=== PATIENT | male | born 1940 | race Caucasian/White ===

== ENCOUNTER 2022-10-31 07:40 | Emergency (ER) | payer MEDICARE ==
--- NOTE | 2022-10-31 07:55 | ED ---
General Adult HPI - General Source: patient, RN notes reviewed Mode of arrival: wheelchair Limitations: no limitations <Yoel Diaz - Last Filed: 10/31/22 07:54> <Mary Lou Perdomo - Last Filed: 11/03/22 22:50> - General Chief complaint: Extremity Injury, Lower Stated complaint: swelling in feet Time Seen by Provider: 10/31/22 07:54 - History of Present Illness Initial comments: This an 82-year-old male presents emergency Department with chief complaint of leg swelling. This is an outpatient last couple years. He states that he is currently homeless she is from [facility] he [place] [facility] vehicle stopped working. Patient states that his legs are more swollen usual and he felt that he needs to be evaluated because he was evaluated and [facility] 2 weeks ago he was told that symptoms worsened to be evaluated. He denies any chest pain or shortness of breath denies any other specific complaints states she was on diuretics but states never helped so they were not continued. (Yoel Diaz) 82 year old male presents with leg swelling. States he has long standing issues with leg swelling but recently drove to [place] from [place] and has had worsening swelling since the drive. He denies any calf pain. No chest pain or shortness of breath. He use to take a water pill for the swelling however he felt like they didnt work and the swelling got better on its own so he has been off of them for several years. He denies any redness. He has been attempting to elevate them but has been living in his car with his dog. States that he plans to rent an apartment when he gets his social security next week. (Mary Lou Perdomo) - Related Data Previous Rx's Medication Instructions Recorded hydroCHLOROthiazide 25 mg PO DAILY #30 tab 10/31/22 Allergies Allergy/AdvReac Type Severity Reaction Status Date / Time Penicillins Allergy Unknown Verified 10/31/22 12:05 Childhood Review of Systems ROS Other: All systems not noted in ROS Statement are negative. <Yoel Diaz - Last Filed: 10/31/22 07:54> ROS Other: All systems not noted in ROS Statement are negative. <Mary Lou Perdomo - Last Filed: 11/03/22 22:50> ROS Statement: Those systems with pertinent positive or pertinent negative responses have been documented in the HPI. Past Medical History Past Medical History: No Reported History History of Any Multi-Drug Resistant Organisms: None Reported Past Surgical History: No Surgical Hx Reported Past Psychological History: No Psychological Hx Reported Smoking Status: Never smoker Past Alcohol Use History: None Reported Past Drug Use History: None Reported <Yoel Diaz - Last Filed: 10/31/22 07:54> General Exam Limitations: no limitations <Yoel Diaz - Last Filed: 10/31/22 07:54> General appearance: alert, in no apparent distress Head exam: Present: atraumatic, normocephalic, normal inspection Eye exam: Present: normal appearance, PERRL, EOMI. Absent: scleral icterus, conjunctival injection, periorbital swelling ENT exam: Present: normal exam, mucous membranes moist Neck exam: Present: normal inspection. Absent: tenderness, meningismus, lymphadenopathy Respiratory exam: Present: normal lung sounds bilaterally. Absent: respiratory distress, wheezes, rales, rhonchi, stridor Cardiovascular Exam: Present: regular rate, normal rhythm, normal heart sounds. Absent: systolic murmur, diastolic murmur, rubs, gallop, clicks GI/Abdominal exam: Present: soft, normal bowel sounds. Absent: distended, tenderness, guarding, rebound, rigid Extremities exam: Present: full ROM, normal capillary refill, pedal edema (2+). Absent: tenderness, joint swelling, calf tenderness Back exam: Present: normal inspection Neurological exam: Present: alert, oriented X3, CN II-XII intact Psychiatric exam: Present: normal affect, normal mood Skin exam: Present: warm, dry, intact, normal color. Absent: rash <Mary Lou Perdomo - Last Filed: 11/03/22 22:50> - General Exam Comments Initial Comments: Visual Physical Exam Vital signs reviewed General: Well-appearing, nontoxic, no acute distress. Head: Normocephalic, atraumatic Eyes: PERRLA, EOMI ENT: Airway patent Chest: Nonlabored breathing Skin: No visual rash, normal skin tone Neuro: Alert and oriented 3 Musculoskeletal: No gross abnormalities (Yoel Diaz) Course Vital Signs 10/31/22 10/31/22 07:51 12:13 Temperature 98 F 97.4 F L Pulse Rate 69 68 Respiratory 16 18 Rate Blood Pressure 193/84 183/79 O2 Sat by Pulse 99 100 Oximetry Medical Decision Making <Yoel Diaz - Last Filed: 10/31/22 07:54> - Lab Data Result diagrams: 10/31/22 09:54 10/31/22 09:54 <Mary Lou Perdomo - Last Filed: 11/03/22 22:50> - Medical Decision Making I performed a quick note portion of this chart signed Yoel Diaz PA-C (Yoel Diaz) Was pt. sent in by a medical professional or institution (MERLYN Mckenna, COLLAR FOLDER OPERATOR, urgent care, hospital, or prison...) When possible be specific @ -No Did you speak to anyone other than the patient for history (EMS, parent, family, police, friend...)? What history was obtained from this source @ -No Did you review nursing and triage notes (agree or disagree)? Why? @ -I reviewed and agree with nursing and triage notes Were old charts reviewed (outside hosp., previous admission, EMS record, old EKG , old radiological studies, urgent care reports/EKG's, prison records)? Report findings @ -No old charts were reviewed Differential Diagnosis (chest pain, altered mental status, abdominal pain women, abdominal pain men, vaginal bleeding, weakness, fever, dyspnea, syncope, headache, dizziness, GI bleed, back pain, seizure, CVA, palpatations, mental health, musculoskeletal)? @ -peripheral edema, dvt, cellulitis EKG interpreted by me (3pts min.). @ -Yes and demonstrates sinus rhythm rate 64. FL interval 186. QRS 116. QTC of 443. No acute ST segment elevations or depressions X-rays interpreted by me (1pt min.). @ -None done CT interpreted by me (1pt min.). @ -None done U/S interpreted by me (1pt. min.). @ -yes and demonstrates no dvt What testing was considered but not performed or refused? (CT, X-rays, U/S, labs)? Why? @ -None What meds were considered but not given or refused? Why? @ -None Did you discuss the management of the patient with other professionals (professionals i.e. , MERLYN, COLLAR FOLDER OPERATOR, lab, RT, psych nurse, manager social services, division sales manager, teacher, campus safety officer, protective services case worker)? Give summary @ -Spoke with Danielle the protective services case worker who attempts to help the patients social situation Was smoking cessation discussed for >3mins.? @ -No Was critical care preformed (if so, how long)? @ -No Were there social determinants of health that impacted care today? How? (Homelessness, low income, unemployed, alcoholism, drug addiction, transportation, low edu. Level, literacy, decrease access to med. care, fpc, rehab)? @ -Patient recently moved from [place] to [place] and is living in his car Was there de-escalation of care discussed even if they declined (Discuss DNR or withdrawal of care, Hospice)? DNR status @ -No What co-morbidities impacted this encounter? (DM, HTN, Smoking, COPD, CAD, Can cer, CVA, ARF, Chemo, Hep., AIDS, mental health diagnosis, sleep apnea, morbid obesity)? @ -None Was patient admitted / discharged? Hospital course, mention meds given and route, prescriptions, significant lab abnormalities, going to OR and other pertinent info. @ -Patient placed in room 32. Labs conducted. US performed of lower extremities which do not demonstrate dvt. chemical manager speaks with the patient. He will be started on a diuretic. Instructed to follow up with PCP. Return for any new or worsening symptoms. Undiagnosed new problem with uncertain prognosis? @ -No Drug Therapy requiring intensive monitoring for toxicity (Heparin, Nitro, Insulin, Cardizem)? @ -No Were any procedures done? @ -No Diagnosis/symptom? @ -acute exacerbation of chronic peripheral edema Acute, or Chronic, or Acute on Chronic? @ -acute on chronic Uncomplicated (without systemic symptoms) or Complicated (systemic symptoms)? @ -uncomplicated Side effects of treatment? @ -No Exacerbation, Progression, or Severe Exacerbation? @ -yes Poses a threat to life or bodily function? How? (Chest pain, [place], [place], pneumonia, PE, COPD, DKA, ARF, appy, cholecystitis, CVA, Diverticulitis, Homicidal, Suicidal, threat to staff... and all critical care pts) @ -No (Mary Lou Perdomo) - Lab Data Lab Results 10/31/22 10/31/22 10/31/22 Range/Units 09:54 09:54 09:54 WBC 5.7 (3.8-10.6) k/uL RBC 4.26 L (4.30-5.90) m/uL Hgb 13.8 (13.0-17.5) gm/dL Hct 41.5 (39.0-53.0) % MCV 97.5 (80.0-100.0) fL MCH 32.3 (25.0-35.0) pg MCHC 33.2 (31.0-37.0) g/dL RDW 14.0 (11.5-15.5) % Plt Count 203 (150-450) k/uL MPV 7.7 Neutrophils % 75 % Lymphocytes % 15 % Monocytes % 5 % Eosinophils % 1 % Basophils % 0 % Neutrophils # 4.3 (1.3-7.7) k/uL Lymphocytes # 0.9 L (1.0-4.8) k/uL Monocytes # 0.3 (0-1.0) k/uL Eosinophils # 0.1 (0-0.7) k/uL Basophils # 0.0 (0-0.2) k/uL PT 10.4 (9.0-12.0) sec INR 1.0 (<1.2) APTT 24.9 (22.0-30.0) sec Sodium 143 (137-145) mmol/L Potassium 3.9 (3.5-5.1) mmol/L Chloride 112 H (98-107) mmol/L Carbon Dioxide 22 (22-30) mmol/L Anion Gap 9 mmol/L BUN 22 H (9-20) mg/dL Creatinine 1.29 H (0.66-1.25) mg/dL Est GFR (CKD-EPI)AfAm 59 (>60 ml/min/1.73 sqM) Est GFR (CKD-EPI)NonAf 51 (>60 ml/min/1.73 sqM) Glucose 123 H (74-99) mg/dL Calcium 9.0 (8.4-10.2) mg/dL Magnesium 1.9 (1.6-2.3) mg/dL Total Bilirubin 0.7 (0.2-1.3) mg/dL AST 24 (17-59) U/L ALT 16 (4-49) U/L Alkaline Phosphatase 52 (38-126) U/L NT-Pro-B Natriuret Pep 1620 pg/mL Total Protein 6.8 (6.3-8.2) g/dL Albumin 4.1 (3.5-5.0) g/dL Disposition <Yoel Diaz - Last Filed: 10/31/22 07:54> Is patient prescribed a controlled substance at d/c from ED?: No Time of Disposition: 13:02 <Mary Lou Perdomo - Last Filed: 11/03/22 22:50> Clinical Impression: Peripheral edema Disposition: HOME SELF-CARE Condition: Stable Instructions (If sedation given, give patient instructions): Leg Edema (ED) Prescriptions: hydroCHLOROthiazide 25 mg PO DAILY #30 tab Referrals: Nonstaff,Physician [Primary Care Provider] - 1-2 days Forms: [facility], [facility], Who Do I Call?, Community Resources, Personal Chocolate Production Machine Operator
[2022-10-31 10:12] LABS: Basophils % (A) 0 %; Eosinophils # (A) 0.1 k/uL (0-0.7); Eosinophils % (A) 1 %; HCT 41.5 % (39.0-53.0); HGB 13.8 gm/dL (13.0-17.5); Lymphocytes # (A) 0.9 k/uL (1.0-4.8); Lymphocytes % (A) 15 %; MCH 32.3 pg (25.0-35.0); MCHC 33.2 g/dL (31.0-37.0); MCV 97.5 fL (80.0-100.0); Mean Platelet Volume 7.7; Monocytes # (A) 0.3 k/uL (0-1.0); Monocytes % (A) 5 %; Neutrophils # (A) 4.3 k/uL (1.3-7.7); Neutrophils % (A) 75 %; Platelet Count 203 k/uL (150-450); RBC 4.26 m/uL (4.30-5.90); WBC 5.7 k/uL (3.8-10.6)
[2022-10-31 10:20] LABS: ALT 16 U/L (4-49); AST 24 U/L (17-59); African American GFR (CKD) 59 (>60 ml/min/1.73 sqM); Albumin 4.1 g/dL (3.5-5.0); Alkaline Phosphatase 52 U/L (38-126); Anion Gap 9 mmol/L; Blood Urea Nitrogen 22 mg/dL (9-20); Carbon Dioxide 22 mmol/L (22-30); Chloride 112 mmol/L (98-107); Glucose 123 mg/dL (74-99); Magnesium 1.9 mg/dL (1.6-2.3); Non-African American GFR(CKD) 51 (>60 ml/min/1.73 sqM); Partial Thromboplastin Time 24.9 sec (22.0-30.0); Potassium 3.9 mmol/L (3.5-5.1); Prothrombin Time 10.4 sec (9.0-12.0); Sodium 143 mmol/L (137-145); Total Bilirubin 0.7 mg/dL (0.2-1.3); Total Protein 6.8 g/dL (6.3-8.2)
[2022-10-31 10:28] LABS: NT-Pro-B-Type Natriuretic Pept 1620 pg/mL
--- NOTE | 2022-10-31 11:57 | US ---
EXAMINATION TYPE: US venous doppler duplex LE DATE OF EXAM: 10/31/2022 10:58 AM COMPARISON: NONE CLINICAL INDICATION: Male, 82 years old with history of swelling, traveling; bilateral swelling inter mittent x several years, recent 1 week car trip SIDE PERFORMED: Bilateral TECHNIQUE: The lower extremity deep venous system is examined utilizing real time linear array sonog jovi with graded compression, doppler sonography and color-flow sonography. VESSELS IMAGED: Common Femoral Vein Deep Femoral Vein Greater Saphenous Vein * Femoral Vein Popliteal Vein Small Saphenous Vein * Proximal Calf Veins (* superficial vessels) Right Leg: Negative for DVT Left Leg: Negative for DVT IMPRESSION: No evidence of DVT at this time.
[2022-10-31 15:57] VITALS: BP 183/79; PULSE 68; RESP 18; TEMP 97.4
== END 2022-10-31 14:06 | disposition home or self-care (01) ==
LOC: EC 07:40
DX: R60.0 Localized edema (principal); I45.4 Nonspecific intraventricular block; Z88.0 Allergy status to penicillin
CPT/HCPCS: 36415; 80053; 83735; 83880; 85025; 85610; 85730; 93970; 99284

== ENCOUNTER 2022-11-26 17:56 | Emergency (ER) | payer MEDICARE ==
--- NOTE | 2022-11-26 18:35 | ED ---
General Adult HPI - General Source: patient, RN notes reviewed Mode of arrival: ambulatory Limitations: no limitations <Analia Hernandez - Last Filed: 11/26/22 18:33> - General Source: patient, RN notes reviewed Mode of arrival: ambulatory Limitations: no limitations <Yoel Diaz - Last Filed: 11/27/22 00:03> - General Chief complaint: Recheck/Abnormal Lab/Rx Stated complaint: asthma, Time Seen by Provider: 11/26/22 18:30 - History of Present Illness Initial comments: 82-year-old male presents emergency Department with chief complaint of asthma issues. He states that with the rain and the cold weather he has noticed some worsening in his asthma symptoms. Denies fever, chills. (Analia Hernandez) 82-year-old male presents emergency Department chief complaint of asthma issues. Patient states he has issues when he is out in the rain and cold. Patient states he usually takes Benadryl for it. Patient denies use of inhaler denies chest pain no fevers chills patient states he is homeless living out of his car. This is been an ongoing issue. (Yoel Diaz) - Related Data Previous Rx's Medication Instructions Recorded hydroCHLOROthiazide 25 mg PO DAILY #30 tab 10/31/22 Allergies Allergy/AdvReac Type Severity Reaction Status Date / Time Penicillins Allergy Unknown Verified 11/26/22 18:28 Childhood Review of Systems ROS Other: All systems not noted in ROS Statement are negative. <Analia Hernandez - Last Filed: 11/26/22 18:33> ROS Other: All systems not noted in ROS Statement are negative. <Yoel Diaz - Last Filed: 11/27/22 00:03> ROS Statement: Those systems with pertinent positive or pertinent negative responses have been documented in the HPI. Past Medical History Past Medical History: Hypertension Additional Past Medical History / Comment(s): swollen feet, History of Any Multi-Drug Resistant Organisms: None Reported Past Surgical History: No Surgical Hx Reported Past Psychological History: No Psychological Hx Reported Smoking Status: Never smoker Past Alcohol Use History: None Reported Past Drug Use History: None Reported <Analia Hernandez - Last Filed: 11/26/22 18:33> General Exam Limitations: no limitations <Analia Hernandez - Last Filed: 11/26/22 18:33> General appearance: alert, in no apparent distress Head exam: Present: atraumatic, normocephalic, normal inspection Eye exam: Present: normal appearance, PERRL, EOMI. Absent: scleral icterus, conjunctival injection, periorbital swelling ENT exam: Present: normal exam, normal oropharynx, mucous membranes moist Neck exam: Present: normal inspection, full ROM. Absent: tenderness, meningismus, lymphadenopathy Respiratory exam: Present: normal lung sounds bilaterally. Absent: respiratory distress, wheezes, rales, rhonchi, stridor Cardiovascular Exam: Present: regular rate, normal rhythm, normal heart sounds. Absent: systolic murmur, diastolic murmur, rubs, gallop, clicks Neurological exam: Present: alert, oriented X3, CN II-XII intact <Yoel Diaz - Last Filed: 11/27/22 00:03> - General Exam Comments Initial Comments: Visual Physical Exam Vital signs reviewed General: Well-appearing, nontoxic, no acute distress. Head: Normocephalic, atraumatic Eyes: PERRLA, EOMI ENT: Airway patent Chest: Nonlabored breathing Skin: No visual rash, normal skin tone Neuro: Alert and oriented 3 Musculoskeletal: No gross abnormalities (Analia Hernandez) Course Vital Signs 11/26/22 18:21 Temperature 96.8 F L Pulse Rate 77 Respiratory 18 Rate Blood Pressure 177/90 O2 Sat by Pulse 100 Oximetry Medical Decision Making <Analia Hernandez - Last Filed: 11/26/22 18:33> <Yoel Diaz - Last Filed: 11/27/22 00:03> - Medical Decision Making I preformed the quick note portion of this chart. Electronically signed by Analia Hernandez PA-C (Analia Hernandez) Was pt. sent in by a medical professional or institution (MERLYN Mckenna, NETWORK SPECIALIST, urgent care, hospital, or correction...) When possible be specific @ -No Did you speak to anyone other than the patient for history (EMS, parent, family, police, friend...)? What history was obtained from this source @ -No Did you review nursing and triage notes (agree or disagree)? Why? @ -I reviewed and agree with nursing and triage notes Were old charts reviewed (outside hosp., previous admission, EMS record, old EKG, old radiological studies, urgent care reports/EKG's, correction records)? Report findings @ -No old charts were reviewed Differential Diagnosis (chest pain, altered mental status, abdominal pain women, abdominal pain men, vaginal bleeding, weakness, fever, dyspnea, syncope, headache, dizziness, GI bleed, back pain, seizure, CVA, palpatations, mental health, musculoskeletal)? @ -Homelessness, asthma, EKG interpreted by me (3pts min.). @ -None X-rays interpreted by me (1pt min.). @ -None done CT interpreted by me (1pt min.). @ -None done U/S interpreted by me (1pt. min.). @ -None done What testing was considered but not performed or refused? (CT, X-rays, U/S, labs)? Why? @ -None What meds were considered but not given or refused? Why? @ -None Did you discuss the management of the patient with other professionals (professionals i.e. , PA, NETWORK SPECIALIST, lab, RT, psych nurse, hospital social worker, vb net programmer, teacher, conservation enforcement officer, oil field caser)? Give summary @ -No Was smoking cessation discussed for >3mins.? @ -No Was critical care preformed (if so, how long)? @ -No Were there social determinants of health that impacted care today? How? (Homelessness, low income, unemployed, alcoholism, drug addiction, tra nsportation, low edu. Level, literacy, decrease access to med. care, detention, rehab)? @ -Homelessness patient's presenting to due to minimal usp, food Was there de-escalation of care discussed even if they declined (Discuss DNR or withdrawal of care, Hospice)? DNR status @ -No What co-morbidities impacted this encounter? (DM, HTN, Smoking, COPD, CAD, Cancer, CVA, ARF, Chemo, Hep., AIDS, mental health diagnosis, sleep apnea, morbid obesity)? @ -None Was patient admitted / discharged? Hospital course, mention meds given and route, prescriptions, significant lab abnormalities, going to OR and other pertinent info. @ -Discharge patient is improved upon evaluation of the patient. Patient complaints other than that he is hungry, thirsty. Patient is currently homeless. Undiagnosed new problem with uncertain prognosis? @ -No Drug Therapy requiring intensive monitoring for toxicity (Heparin, Nitro, Insulin, Cardizem)? @ -No Were any procedures done? @ -No Diagnosis/symptom? @ -Asthma Acute, or Chronic, or Acute on Chronic? @ -Acute Uncomplicated (without systemic symptoms) or Complicated (systemic symptoms)? @ -Uncomplicated Side effects of treatment? @ -No Exacerbation, Progression, or Severe Exacerbation? @ -No Poses a threat to life or bodily function? How? (Chest pain, [place], [place], pneumonia, PE, COPD, DKA, ARF, appy, cholecystitis, CVA, Diverticulitis, Homicidal, Suicidal, threat to staff... and all critical care pts) @ -No (Yoel Diaz) Disposition <Analia Hernandez - Last Filed: 11/26/22 18:33> Is patient prescribed a controlled substance at d/c from ED?: No Time of Disposition: 00:03 <Yoel Diaz - Last Filed: 11/27/22 00:03> Clinical Impression: Asthma Disposition: HOME SELF-CARE Condition: Stable Additional Instructions: Please return to the Emergency Department if symptoms worsen or any other concerns. Referrals: None,Stated [Primary Care Provider] - 1-2 days
[2022-11-26 18:40] VITALS: BP 177/90; PULSE 77; TEMP 96.8
[2022-11-27 00:17] VITALS: RESP 16
== END 2022-11-27 00:27 | disposition home or self-care (01) ==
LOC: EC 17:56
DX: J45.909 Unspecified asthma, uncomplicated (principal); I10 Essential (primary) hypertension; Z88.0 Allergy status to penicillin
CPT/HCPCS: 99284

== ENCOUNTER 2022-11-27 06:22 | Emergency (ER) | payer MEDICARE ==
--- NOTE | 2022-11-27 07:07 | ED ---
General Adult HPI - General Stated complaint: altered mental state Time Seen by Provider: 11/27/22 06:26 Source: patient, EMS Mode of arrival: EMS - History of Present Illness Initial comments: The patient is an 82-year-old male who has a history of hypertension and homelessness but is otherwise healthy who presents to emergency room with no complaints. Patient states that the police knocked on his window as he was sleeping in his car in a gas station parking lot. He was brought in for evaluation. He states that he is having emotional distress but denies any physical complaints. the patient was seen here last night and went back to his car. He was able to get gas for his car but when he went to start the car it wouldnt start. patient is having a hard time with living and finances. he has applied for an independent living housing but has not heard back about the application. if he does not get in, he will return to [place] to live for the winter. - Related Data Previous Rx's Medication Instructions Recorded hydroCHLOROthiazide 25 mg PO DAILY #30 tab 10/31/22 hydroCHLOROthiazide 25 mg PO DAILY #30 tablet 11/27/22 Allergies Allergy/AdvReac Type Severity Reaction Status Date / Time Penicillins Allergy Unknown Verified 11/27/22 06:27 Childhood Review of Systems ROS Statement: Those systems with pertinent positive or pertinent negative responses have been documented in the HPI. ROS Other: All systems not noted in ROS Statement are negative. Past Medical History Past Medical History: Hypertension Additional Past Medical History / Comment(s): swollen feet, History of Any Multi-Drug Resistant Organisms: None Reported Past Surgical History: No Surgical Hx Reported Past Psychological History: No Psychological Hx Reported Smoking Status: Never smoker Past Alcohol Use History: None Reported Past Drug Use History: None Reported General Exam Limitations: no limitations General appearance: alert, in no apparent distress Head exam: Present: atraumatic Eye exam: Present: normal appearance Pupils: Present: normal accommodation ENT exam: Present: normal exam Neck exam: Present: normal inspection Respiratory exam: Present: normal lung sounds bilaterally Cardiovascular Exam: Present: regular rate, normal rhythm GI/Abdominal exam: Present: soft Extremities exam: Present: full ROM Neurological exam: Present: alert, oriented X3, CN II-XII intact Skin exam: Present: warm, dry Course Vital Signs 11/27/22 11/27/22 11/27/22 06:23 07:54 08:57 Temperature 97.8 F 97.6 F 97.8 F Pulse Rate 77 78 76 Respiratory 16 18 19 Rate Blood Pressure 192/80 154/106 176/107 O2 Sat by Pulse 99 99 100 Oximetry - Reevaluation(s) Reevaluation #1: 11/27/22 08:38 patient was given his dose of BP medication. he is eating, drinking and sleeping in the ER without complaints. He was cleaned up, fed and given some food for his discharge. he Was also given intermediate resources for other living arranagement options. Medical Decision Making - Medical Decision Making Was pt. sent in by a medical professional or institution (, [facility], MEDICAL RESEARCH TECH, urgent care, hospital, or [facility]...) When possible be specific @ -[No] Did you speak to anyone other than the patient for history (EMS, parent, family, police, friend...)? What history was obtained from this source @ -[No] Did you review nursing and triage notes (agree or disagree)? Why? @ -[I reviewed and agree with nursing and triage notes] Were old charts reviewed (outside hosp., previous admission, EMS record, old EKG, old radiological studies, urgent care reports/EKG's, [facility] records)? Report findings @ -Yes old charts were reviewed including yesterday's ED visit Differential Diagnosis (chest pain, altered mental status, abdominal pain women, abdominal pain men, vaginal bleeding, weakness, fever, dyspnea, syncope, headache, dizziness, GI bleed, back pain, seizure, CVA, palpatations, mental health, musculoskeletal)? @ -Medical screening exam medication refill, social assistance EKG interpreted by me (3pts min.). @ -[As above] X-rays interpreted by me (1pt min.). @ -[None done] CT interpreted by me (1pt min.). @ -[None done] U/S interpreted by me (1pt. min.). @ -[None done] What testing was considered but not performed or refused? (CT, X-rays, U/S, labs)? Why? @ -[None] What meds were considered but not given or refused? Why? @ -[None] Did you discuss the management of the patient with other professionals (professionals i.e. , PA, MEDICAL RESEARCH TECH, lab, RT, psych nurse, adoption social worker, verse writer, teacher, chief risk officer, welfare case worker)? Give summary @ -Discussed patient's ED visit and management with attending physician Dr. Chavis today. Was smoking cessation discussed for >3mins.? @ -[No] Was critical care preformed (if so, how long)? @ -[No] Were there social determinants of health that impacted care today? How? (Homelessness, low income, unemployed, alcoholism, drug addiction, transportation, low edu. Level, literacy, decrease access to med. care, [facility], rehab)? @ -Yes patient is living out of his car. He has refused to go to shelters however he had a bad experience back in [place] however he was given multiple resources to look into that would be more beneficial than living in his car. He is also following up and working on getting into the independent living he applied to last week. If he does not get into this he will travel down to [place] for the winter. He was given food, fluids and was cleaned up prior to discharge Was there de-escalation of care discussed even if they declined (Discuss DNR or withdrawal of care, Hospice)? DNR status @ -[No] What co-morbidities impacted this encounter? (DM, HTN, Smoking, COPD, CAD, Cancer, CVA, ARF, Chemo, Hep., AIDS, mental health diagnosis, sleep apnea, morbid obesity)? @ -Hypertension, homelessness Was patient admitted / discharged? Hospital course, mention meds given and route, prescriptions, significant lab abnormalities, going to OR and other pertinent info. @ -Patient is stable and has no complaints at this time. He does not require or meet criteria for hospital admission. He denies any pain, chest pain, shortness of breath or other acute changes. He is alert and oriented at this time. He was given multiple food options and fluids. He was given resources for shelters and given a ride back to his car. Undiagnosed new problem with uncertain prognosis? @ -[No] Drug Therapy requiring intensive monitoring for toxicity (Heparin, Nitro, Insulin, Cardizem)? @ -[No] Were any procedures done? @ -[No] Diagnosis/symptom? @ -Medical screening exam, medication refill, social assistance Acute, or Chronic, or Acute on Chronic? @ -Chronic Uncomplicated (without systemic symptoms) or Complicated (systemic symptoms)? @ -[default] Side effects of treatment? @ -[No] Exacerbation, Progression, or Severe Exacerbation? @ -[No] Poses a threat to life or bodily function? How? (Chest pain, [place], [place], pneumonia, PE, COPD, DKA, ARF, appy, cholecystitis, CVA, Diverticulitis, Homicidal, Suicidal, threat to staff... and all critical care pts) @ -[No] Disposition Clinical Impression: Medication refill, Encounter for medical screening examination Disposition: HOME SELF-CARE Condition: Good Prescriptions: hydroCHLOROthiazide 25 mg PO DAILY #30 tablet Is patient prescribed a controlled substance at d/c from ED?: No When asked, does pt state using other controlled substances?: No If prescribed controlled substance>3 days was MAPS reviewed?: No Referrals: None,Stated [Primary Care Provider] - 1-2 days Forms: [facility], [facility], [facility]
[2022-11-27] MEDS ORDERED: hydroCHLOROthiazide 25 MG TAB PO STA (07:09)
[2022-11-27 09:00] VITALS: BP 176/107; PULSE 76; RESP 19; TEMP 97.8
== END 2022-11-27 09:28 | disposition home or self-care (01) ==
LOC: EC 06:22
DX: Z76.0 Encounter for issue of repeat prescription (principal); Z00.00 Encounter for general adult medical examination without abnormal findings; I10 Essential (primary) hypertension; Z88.0 Allergy status to penicillin
CPT/HCPCS: 99285

== ENCOUNTER 2023-10-15 15:58 | Emergency (ER) | payer MEDICARE ==
[2023-10-15 16:04] VITALS: BP 163/76; PULSE 77; RESP 18; TEMP 98.2
--- NOTE | 2023-10-15 16:31 | ED ---
General Adult HPI - General Chief complaint: Shortness of Breath Stated complaint: SOB, weakness Time Seen by Provider: 10/15/23 16:30 Source: patient Mode of arrival: wheelchair Limitations: no limitations - History of Present Illness Initial comments: 83-year-old male presenting with chief complaint of shortness of breath. Patient states this been ongoing for about a month but has been worse the last few days. Patient is currently homeless states that he had "a rough night". Positive lower extremity edema. Denies chest pain. - Related Data Previous Rx's Medication Instructions Recorded hydroCHLOROthiazide 25 mg PO DAILY #30 tab 10/31/22 hydroCHLOROthiazide 25 mg PO DAILY #30 tablet 11/27/22 Allergies Allergy/AdvReac Type Severity Reaction Status Date / Time Penicillins Allergy Unknown Verified 10/15/23 16:04 Childhood Review of Systems ROS Statement: Those systems with pertinent positive or pertinent negative responses have been documented in the HPI. ROS Other: All systems not noted in ROS Statement are negative. Past Medical History Past Medical History: Hypertension Additional Past Medical History / Comment(s): swollen feet, History of Any Multi-Drug Resistant Organisms: None Reported Past Surgical History: No Surgical Hx Reported Past Psychological History: No Psychological Hx Reported Smoking Status: Never smoker Past Alcohol Use History: None Reported Past Drug Use History: None Reported General Exam - General Exam Comments Initial Comments: Visual Physical Exam Vital signs reviewed General: Well-appearing, nontoxic, no acute distress. Head: Normocephalic, atraumatic Eyes: PERRLA, EOMI ENT: Airway patent Chest: Nonlabored breathing Skin: No visual rash, normal skin tone Neuro: Alert and oriented 3 Musculoskeletal: No gross abnormalities Limitations: no limitations Course Vital Signs 10/15/23 16:02 Temperature 98.2 F Pulse Rate 77 Respiratory 18 Rate Blood Pressure 163/76 O2 Sat by Pulse 100 Oximetry Medical Decision Making - Medical Decision Making I performed the quick note portion of this visit, electronically signed Jerson Harper PA-C Records indicate the patient later eloped from the waiting room Disposition Clinical Impression: Shortness of breath Disposition: LEFT AGAINST MEDICAL ADVICE Condition: Undetermined Referrals: None,Stated [Primary Care Provider] - 1-2 days
--- NOTE | 2023-10-15 18:05 | XR ---
EXAMINATION TYPE: XR chest 2V DATE OF EXAM: 10/15/2023 COMPARISON: None INDICATION: Difficulty breathing, short of breath TECHNIQUE: Frontal and lateral views of the chest are obtained. FINDINGS: The heart size is normal. The pulmonary vasculature is normal. Normal plate atelectasis at the left base.. Surgical clips are in the right upper quadrant of the abdomen. IMPRESSION: 1. Mild infiltrate along the left diaphragm. Correlate for atelectasis. Early pneumonia could be cons idered.
== END 2023-10-15 17:42 | disposition left against medical advice (07) ==
LOC: EC 15:58
CPT/HCPCS: 71046; 99284